=== PATIENT | female | born 1990 | race Caucasian/White ===

== ENCOUNTER 2017-03-09 08:22 | Day surgery (SDC) | payer SELFPAY ==
[~2017-03-09 08:22] MED LIST: Lactated Ringers 1,000 ML IV SCH; Lidocaine 2% 5 ML SDV ONE; Midazolam 1 MG/ML 2 ML SDV ONE; Ondansetron 4 MG/2 ML SDV ONE; Propofol 200 MG/20 ML SDV ONE; Sodium Chloride 0.9% 10 ML Syringe FLUSH PRN; Sodium Chloride 0.9% 2.5 ML Syringe FLUSH PRN; fentaNYL 100 MCG/2 ML SDV IVPUSH PRN; fentaNYL 100 MCG/2 ML SDV ONE
--- NOTE | 2017-03-09 08:39 | PCM.PREANE ---
Preanesthetic Assessment - Anesthesia/Transfusion/Family Hx Anesthesia History: Prior Anesthesia Without Reaction Family History of Anesthesia Reaction: No Transfusion History: No Prior Transfusion(s) Intubation History: Unknown - Review of Systems General: No Symptoms Pulmonary: No Symptoms Gastrointestinal: No Symptoms Neurological: No Symptoms Other: Reports: None - Physical Assessment Height: 1.73 m Weight: 73.936 kg ASA Class: 1 Mental Status: Alert & Oriented x3 Airway Class: Mallampati = 1 Dentition: Reports: Normal Dentition Thyro-Mental Finger Breadths: 3 Mouth Opening Finger Breadths: 3 ROM/Head Extension: Full Lungs: Clear to Auscultation, Normal Respiratory Effort Cardiovascular: Regular Rate, Regular Rhythm - Allergies Allergies/Adverse Reactions: Allergies Allergy/AdvReac Type Severity Reaction Status Date / Time No Known Allergies Allergy Verified 03/06/17 11:29 - Blood Blood Available: No - Anesthesia Plan Pre-Op Medication Ordered: None - Acknowledgements Anesthesia Type Planned: General Anesthesia Pt an Appropriate Candidate for the Planned Anesthesia: Yes Alternatives and Risks of Anesthesia Discussed w Pt/Guardian: Yes Pt/Guardian Understands and Agrees with Anesthesia Plan: Yes PreAnesthesia Questionnaire Genitourinary History: Reports: Renal Calculus Other Genitourinary History: stones passes on their own Musculoskeletal History: Reports: Fracture - Past Surgical History Head Surgeries/Procedures: Reports: None Female Surgical History: Reports: Breast Implant Musculoskeletal Surgical History: Reports: ORIF Other Musculoskeletal Surgeries/Procedures:: ORIF left ring finger (hardware removed) - SUBSTANCE USE Smoking Status *Q: Former Smoker (quit 3 years ago) Tobacco Use Within Last Twelve Months: Cigarettes Second Hand Smoke Exposure: No Recreational Drug Use History: No - HOME MEDS Home Medications: Home Meds . [No Known Home Meds] 03/06/17 [History] - CURRENT (IN HOUSE) MEDS Current Meds: Current Medications Fentanyl (Sublimaze) 50 mcg IVPUSH Q5M PRN PRN Reason: Pain (severe 7-10) Stop: 03/10/17 07:54 Lactated Ringer's (Ringers, Lactated) 1,000 mls @ 125 mls/hr IV ASDIRECTED ARMEN Lactated Ringer's (Ringers, Lactated) 1,000 mls @ 125 mls/hr IV ASDIRECTED ARMEN Sodium Chloride (Saline Flush) 10 ml FLUSH ASDIRECTED PRN PRN Reason: Keep Vein Open Sodium Chloride (Saline Flush) 2.5 ml FLUSH ASDIRECTED PRN PRN Reason: Keep Vein Open Discontinued Medications Fentanyl (Sublimaze) Confirm Administered Dose 200 mcg .ROUTE .STK-MED ONE Stop: 03/09/17 07:28 Lidocaine (Xylocaine-Mpf 2%) Confirm Administered Dose 5 ml .ROUTE .STK-MED ONE Stop: 03/09/17 07:27 Midazolam HCl (Versed 1 Mg/Ml) Confirm Administered Dose 2 mg .ROUTE .STK-MED ONE Stop: 03/09/17 07:28 Ondansetron HCl (Zofran) Confirm Administered Dose 4 mg .ROUTE .STK-MED ONE Stop: 03/09/17 07:27 Propofol (Diprivan 20 Ml) Confirm Administered Dose 200 mg .ROUTE .STK-MED ONE Stop: 03/09/17 07:28
[2017-03-09] MEDS ORDERED: Methylergonovine 0.2 MG/1 ML Amp ONE (09:49)
[2017-03-09] MEDS ORDERED: ePHEDrine 50 MG/ML SDV ONE (10:30)
[2017-03-09] MEDS ORDERED: Carboprost Tromethamine 250 MCG/1 ML Amp ONE (10:37)
--- NOTE | 2017-03-09 11:17 | PCM.OPNOTE ---
- General Post-Op/Procedure Note Date of Surgery/Procedure: 03/09/17 Operative Procedure(s): Suction Dilatation and curettage Findings: Bulky 12 weeks gravis uterus. No adnexal masses Pre Op Diagnosis: Missed Post-Op Diagnosis: Same Anesthesia Technique: General ET Tube Primary Surgeon: Leeann Drewum Pathology: Products of conception Fluid Replacement, Intraop: 3,000 EBL in mLs: 1,500 Complications: None Condition: Good
[2017-03-09 12:43] VITALS: BP 117/67
--- NOTE | 2017-03-10 02:15 | OR ---
SURGEON: Leeann Shore MD DATE OF PROCEDURE: 03/09/2017 PREOPERATIVE DIAGNOSIS: Missed . POSTOPERATIVE DIAGNOSIS: Missed . PROCEDURES: Suction dilatation and curettage under ultrasound guidance. ANESTHESIA: General endotracheal. Intravenous Fluid: 3000ml ESTIMATED BLOOD LOSS: 1500 mL. COMPLICATIONS: None. DISPOSITION: The patient taken to the recovery room in stable condition. FINDINGS: Bulky anteverted mobile uterus 12 weeks size. No adnexal masses palpable. BRIEF HISTORY: The patient is a 26-year-old G3, P1, who had her first obstetric visit 8 weeks ago with a confirmed viable intrauterine at that time at 6 weeks gestation. No cardiac activity was identified on doppler at her routine visit 4 weeks later, and demise was confirmed on ultrasound at a gestational age of 11 weeks and 2 days by crown- rump length which was consistent with her dates at that time. Management options were discussed with the patient and she opted to go ahead with surgical management. Risks and benefits were discussed extensively with the patient and appropriate consent obtained. Blood type is A positive. DESCRIPTION OF PROCEDURE: The patient was taken to the operating room, where induction of general anesthesia was performed without difficulty. After adequate level of anesthesia, she was placed in dorsal lithotomy position, prepped and draped in the usual sterile fashion. Appropriate time-out was performed. Examination under anesthesia revealed the above-mentioned findings. A bivalve speculum was placed into the vagina and the anterior lip of the cervix was grasped with an Allis clamp. The cervical os was serially dilated up to an 11 Hegar dilator. Suction curettage was then performed with 11-mm curved plastic cannula. This was introduced into the uterine cavity with significant amount of tissue retrieved. Ultrasound was performed and the uterus was found to be filled with mostly blood clots. Gentle curettage was performed with a large curette retrieving more products of conception. This was then followed by suction curettage under ultrasound guidance retrieving more blood and clots. She received a dose of Methergine. After these medications were given, further suction curettage was performed as the uterus was found to be filling up with blood on sonogram. Once the blood was evacuated from the uterus, the uterus contracted down and a thin endometrial lining visualized. With no further bleeding noted, the procedure was completed. All the instruments were removed from the vagina. Sponge, lap, and instrument counts were correct at the end of the procedure. She was taken to the recovery room in a stable condition. LAURENT / HIPOLITO /[id number]
== END 2017-03-09 12:50 | disposition home or self-care (01) ==
LOC: MW.SDS 08:22
PROVIDERS: ATTEND Obstetrics & Gynecology
DX: O02.1 Missed abortion (principal); Z79.899 Other long term (current) drug therapy; Z98.890 Other specified postprocedural states; Z87.891 Personal history of nicotine dependence; Z87.442 Personal history of urinary calculi
CPT/HCPCS: 36415; 59820; 85027; J2210; J2250; J2405; J3010; J7120; P9016; 00940; 36430; 86850; 86900; 86901; 86920; 86921; 86922; 88305; J2704

== ENCOUNTER 2018-07-19 08:06 | Inpatient (IN) | payer BC ==
[2018-07-19] MEDS ORDERED: Methylergonovine 0.2 MG/1 ML Amp IM PRN (08:14)
[2018-07-19] MEDS ORDERED: Sodium Chloride 0.9% 10 ML Syringe FLUSH PRN (08:14)
[2018-07-19] MEDS ORDERED: Misoprostol 25 MCG (1/4 of 100 MCG) Tab PO PRN ×2 (08:14→13:00)
[2018-07-19] MEDS ORDERED: Misoprostol 200 MCG Tab PO PRN (08:14)
[2018-07-19] MEDS ORDERED: Ondansetron 4 MG/2 ML SDV IV PRN (08:14)
[2018-07-19] MEDS ORDERED: Tranexamic Acid 1,000 MG in Sodium Chloride 0.9% 100 ML IV PRN (08:14)
[2018-07-19] MEDS ORDERED: Nalbuphine 10 MG/1 ML Vial IVPUSH PRN (08:14)
[2018-07-19] MEDS ORDERED: Misoprostol 25 MCG (1/4 of 100 MCG) Tab VAG PRN ×2 (08:14→13:00)
[2018-07-19] MEDS ORDERED: Lidocaine 1% 50 ML MDV INJECT PRN (08:14)
[2018-07-19] MEDS ORDERED: Water For Irrigation,Sterile 1,000 ML Container IRR PRN (08:14)
[2018-07-19] MEDS ORDERED: Terbutaline 1 MG/ML SDV SUBCUT PRN (08:14)
[2018-07-19] MEDS ORDERED: Sodium Chloride 0.9% 2.5 ML Syringe FLUSH PRN (08:14)
[2018-07-19] MEDS ORDERED: Carboprost Tromethamine 250 MCG/1 ML Amp IM PRN (08:14)
[2018-07-19] MEDS ORDERED: Oxytocin/0.9 % Sodium Chloride 30 UNIT/500 ML BAG IV SCH ×2 (08:15)
--- NOTE | 2018-07-19 13:55 | PCM.LDHP ---
L&D History of Present Illness - General Date of Service: 07/19/18 Admit Problem/Dx: Patient Status Order with Admit Dx/Problem 07/19/18 08:14 Patient Status [ADT] Routine Admission Diagnosis/Problem Admission Diagnosis/Problem Source of Information: Patient History Limitations: Reports: No Limitations - History of Present Illness Improves with: Reports: None Worsens with: Reports: None Associated Symptoms: Reports: N - Related Data Allergies/Adverse Reactions: Allergies Allergy/AdvReac Type Severity Reaction Status Date / Time No Known Allergies Allergy Verified 03/06/17 11:29 Home Medications: Home Meds Docusate Sodium [Colace] 100 mg PO DAILY 07/19/18 [History] Vits #93/Iron Fum/FA [ Formula Tablet] 1 each PO DAILY [History] Pyridoxine HCl [Vitamin B-6] 25 mg PO 07/19/18 [History] Past Medical History Genitourinary History: Reports: Renal Calculus Other Genitourinary History: stones passes on their own 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: , 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 Musculoskeletal History: Reports: Fracture - Infectious Disease History Infectious Disease History: Reports: Chicken Pox - Past Surgical History Head Surgeries/Procedures: Reports: None Female Surgical History: Reports: Breast Implant, D&C Musculoskeletal Surgical History: Reports: ORIF Other Musculoskeletal Surgeries/Procedures:: ORIF left ring finger (hardware removed) Social & Family History - Family History OBGYN: Reports: - Tobacco Use Smoking Status *Q: Never Smoker Second Hand Smoke Exposure: No - Recreational Drug Use Recreational Drug Use: No H&P Review of Systems - Review of Systems: Review Of Systems: See Below General: Reports: No Symptoms HEENT: Reports: No Symptoms Pulmonary: Reports: No Symptoms Cardiovascular: Reports: No Symptoms Gastrointestinal: Reports: No Symptoms Genitourinary: Reports: No Symptoms Musculoskeletal: Reports: No Symptoms Skin: Reports: No Symptoms Psychiatric: Reports: No Symptoms Neurological: Reports: No Symptoms Hematologic/Lymphatic: Reports: No Symptoms Immunologic: Reports: No Symptoms L&D Exam - Exam Exam: See Below - Vital Signs Weight: 94.801 kg - OB Specific Fundal Height In cm: 38 Contraction Intensity: Mild to Moderate Movement: Active Heart Tones: Present - Becerra Score Becerra Score Cervix Position: Midposition Becerra Score Consistency: Medium Becerra Score Effacement: 51-70% Becerra Score Dilation: 1-2 cm Becerra Score Infant's Station: -3 Becerra Score Total: 5 - Exam General: Alert, Oriented HEENT: PERRLA, Conjunctiva Clear, EACs Clear, EOMI, Hearing Intact, Mucosa Moist & [place], Nares Patent, Normal Nasal Septum, Posterior Pharynx Clear, TMs Clear Neck: Supple, Trachea Midline Lungs: Clear to Auscultation, Normal Respiratory Effort Cardiovascular: Regular Rate, Regular Rhythm GI/Abdominal Exam: Normal Bowel Sounds, Soft, Non-Tender, No Organomegaly, No Distention, No Abnormal Bruit, No Mass, Pelvis Stable Rectal Exam: Normal Exam, Normal Rectal Tone Genitourinary: Normal external exam, Normal bimanual exam, Normal speculum exam Back Exam: Normal Inspection, Full Range of Motion Extremities: Normal Inspection, Normal Range of Motion, Non-Tender, No Pedal Edema, Normal Capillary Refill Skin: Warm, Dry, Intact Neurological: Cranial Nerves Intact, Reflexes Equal Bilateral Psychiatric: Alert, Normal Affect, Normal Mood - Patient Data Lab Results Last 24 hrs: Laboratory Results - last 24 hr 07/19/18 07/19/18 Range/Units 08:35 08:35 WBC 9.09 (4.0-11.0) K/uL RBC 4.34 (4.30-5.90) M/uL Hgb 12.8 (12.0-16.0) g/dL Hct 38.3 (36.0-46.0) % MCV 88.2 (80.0-98.0) fL MCH 29.5 (27.0-32.0) pg MCHC 33.4 (31.0-37.0) g/dL RDW Std Deviation 45.3 (28.0-62.0) fl RDW Coeff of Adis 14 (11.0-15.0) % Plt Count 203 (150-400) K/uL MPV 9.90 (7.40-12.00) fL Nucleated RBC % 0.0 /100WBC Nucleated RBCs # 0 K/uL Blood Type A POSITIVE Antibody Screen NEGATIVE Result Diagrams: 07/19/18 08:35 Problem List Initiated/Reviewed/Updated: Yes Orders Last 24hrs: Active Orders 24 hr Category Date Time Status Patient Status [ADT] Routine ADT 07/19/18 08:14 Active Communication Order [RC] ASDIRECTED Care 07/19/18 08:14 Active Communication Order [RC] ASDIRECTED Care 07/19/18 08:14 Active Communication Order [RC] ASDIRECTED Care 07/19/18 08:14 Active Heart Tones [RC] CONTINUOUS Care 07/19/18 08:14 Active Non Stress Test [RC] PER UNIT ROUTINE Care 07/19/18 08:14 Active May Shower [RC] ASDIRECTED Care 07/19/18 08:14 Active Notify Provider [RC] PRN Care 07/19/18 08:14 Active Notify Provider [RC] PRN Care 07/19/18 08:14 Active Notify Provider [RC] PRN Care 07/19/18 08:14 Active Notify Provider [RC] STAT Care 07/19/18 08:14 Active Oxygen Therapy [RC] ASDIRECTED Care 07/19/18 08:14 Active Up ad [place] [RC] ASDIRECTED Care 07/19/18 08:14 Active Vaginal Exam [RC] PRN Care 07/19/18 08:14 Active Vaginal Exam [RC] PRN Care 07/19/18 08:14 Active Vital Signs [RC] PER UNIT ROUTINE Care 07/19/18 08:14 Active Regular Diet [DIET] Diet 07/19/18 Breakfast Active Carboprost Tromethamine [Hemabate DS] Med 07/19/18 08:14 Active 250 mcg IM ASDIRECTED PRN Lactated Ringers [Ringers, Lactated] 1,000 ml Med 07/19/18 08:15 Active IV ASDIRECTED Lidocaine 1% [Xylocaine 1%] Med 07/19/18 08:14 Active 50 ml INJECT ONETIME PRN Methylergonovine [Methergine] Med 07/19/18 08:14 Active 0.2 mg IM ASDIRECTED PRN Nalbuphine [Nubain] Med 07/19/18 08:14 Active 10 mg IVPUSH Q1H PRN Ondansetron [Zofran] Med 07/19/18 08:14 Active 4 mg IV Q6H PRN Oxytocin/0.9 % Sodium Chloride [Oxytocin 30 Unit/500 ML Med 07/19/18 08:15 Active -NS] 30 unit in 500 ml IV TITRATE Oxytocin/0.9 % Sodium Chloride [Oxytocin 30 Unit/500 ML Med 07/19/18 08:15 Active -NS] 30 unit in 500 ml IV TITRATE Sodium Chloride 0.9% [Saline Flush] Med 07/19/18 08:14 Active 10 ml FLUSH ASDIRECTED PRN Sodium Chloride 0.9% [Saline Flush] Med 07/19/18 08:14 Active 2.5 ml FLUSH ASDIRECTED PRN Terbutaline [Brethine] Med 07/19/18 08:14 Active 0.25 mg SUBCUT ASDIRECTED PRN Tranexamic Acid [Cyklokapron] 1,000 mg Med 07/19/18 08:14 Active Sodium Chloride 0.9% [Normal Saline] 100 ml IV ONETIME Water For Irrigation,Sterile [Sterile Water for Med 07/19/18 08:14 Active Irrigation] 1,000 ml IRR ASDIRECTED PRN miSOPROStol [Cytotec] Med 07/19/18 08:14 Active 200 mcg PO ONETIME PRN miSOPROStol [Cytotec] Med 07/19/18 08:14 Active 25 mcg PO ONETIME PRN miSOPROStol [Cytotec] Med 07/19/18 13:00 Active 25 mcg PO Q4H PRN miSOPROStol [Cytotec] Med 07/19/18 08:14 Active 25 mcg VAG ONETIME PRN miSOPROStol [Cytotec] Med 07/19/18 13:00 Active 25 mcg VAG Q4H PRN Scalp Electrode [WOMSER] Per Unit Routine Oth 07/19/18 08:14 Ordered Medication Administration Instruction [OM.PC] Q3H Oth 07/19/18 08:15 Ordered Peripheral IV Insertion Adult [OM.PC] Routine Oth 07/19/18 08:14 Ordered Resuscitation Status Routine Resus Stat 07/19/18 08:14 Ordered Medication Orders Carboprost Tromethamine (Hemabate Ds) 250 mcg IM ASDIRECTED PRN PRN Reason: Post Hemorrhage Lactated Ringer's (Ringers, Lactated) 1,000 mls @ 150 mls/hr IV ASDIRECTED ARMEN Oxytocin/Sodium Chloride (Oxytocin 30 Unit/500 Ml-Ns) 30 unit in 500 mls @ 999 mls/hr IV TITRATE ARMEN Oxytocin/Sodium Chloride (Oxytocin 30 Unit/500 Ml-Ns) 30 unit in 500 mls @ 2 mls/hr IV TITRATE ARMEN; Protocol Tranexamic Acid 1,000 mg/ (Sodium Chloride) 110 mls @ 660 mls/hr IV ONETIME PRN PRN Reason: Bleeding Lidocaine HCl (Xylocaine 1%) 50 ml INJECT ONETIME PRN PRN Reason: Laceration repair Methylergonovine Maleate (Methergine) 0.2 mg IM ASDIRECTED PRN PRN Reason: Post Hemorrhage Misoprostol (Cytotec) 200 mcg PO ONETIME PRN PRN Reason: Post Hemorrhage Misoprostol (Cytotec) 25 mcg VAG ONETIME PRN PRN Reason: Cervical Ripening Last Admin: 07/19/18 09:19 Dose: 25 mcg Misoprostol (Cytotec) 25 mcg VAG Q4H PRN PRN Reason: Cervical Ripening Last Admin: 07/19/18 13:41 Dose: 25 mcg Misoprostol (Cytotec) 25 mcg PO ONETIME PRN PRN Reason: Cervical Ripening Last Admin: 07/19/18 09:19 Dose: 25 mcg Misoprostol (Cytotec) 25 mcg PO Q4H PRN PRN Reason: Cervical Ripening Last Admin: 07/19/18 13:41 Dose: 25 mcg Nalbuphine HCl (Nubain) 10 mg IVPUSH Q1H PRN PRN Reason: Pain (severe 7-10) Ondansetron HCl (Zofran) 4 mg IV Q6H PRN PRN Reason: Nausea/Vomiting Sodium Chloride (Saline Flush) 10 ml FLUSH ASDIRECTED PRN PRN Reason: Keep Vein Open Sodium Chloride (Saline Flush) 2.5 ml FLUSH ASDIRECTED PRN PRN Reason: Keep Vein Open Sterile Water (Sterile Water For Irrigation) 1,000 ml IRR ASDIRECTED PRN PRN Reason: delivery Terbutaline Sulfate (Brethine) 0.25 mg SUBCUT ASDIRECTED PRN PRN Reason: Tacysystole Assessment/Plan Comment:: Probably 1001 Admitted for Elective Induction with Cytotec and Pitocin
[2018-07-19] MEDS: Lactated Ringers 1,000 ML IV SCH ×2 (14:48→18:04)
--- NOTE | 2018-07-19 17:00 | PCM.PREANE ---
Preanesthetic Assessment - Anesthesia/Transfusion/Family Hx Anesthesia History: Prior Anesthesia Without Reaction Transfusion History: Prior Transfusion Without Reaction Intubation History: Unknown - Review of Systems General: No Symptoms Pulmonary: No Symptoms Cardiovascular: No Symptoms Gastrointestinal: No Symptoms Neurological: No Symptoms Other: Reports: None - Physical Assessment Height: 5 ft 8 in Weight: 94.801 kg ASA Class: 2 Mental Status: Alert & Oriented x3 Airway Class: Mallampati = 2 Dentition: Reports: Normal Dentition Thyro-Mental Finger Breadths: 3 Mouth Opening Finger Breadths: 3 ROM/Head Extension: Full Lungs: Clear to Auscultation, Normal Respiratory Effort Cardiovascular: Regular Rate, Regular Rhythm - Lab Values: Laboratory Last Values WBC 9.09 K/uL (4.0-11.0) 07/19/18 08:35 RBC 4.34 M/uL (4.30-5.90) 07/19/18 08:35 Hgb 12.8 g/dL (12.0-16.0) 07/19/18 08:35 Hct 38.3 % (36.0-46.0) 07/19/18 08:35 MCV 88.2 fL (80.0-98.0) 07/19/18 08:35 MCH 29.5 pg (27.0-32.0) 07/19/18 08:35 MCHC 33.4 g/dL (31.0-37.0) 07/19/18 08:35 RDW Std Deviation 45.3 fl (28.0-62.0) 07/19/18 08:35 RDW Coeff of Adis 14 % (11.0-15.0) 07/19/18 08:35 Plt Count 203 K/uL (150-400) 07/19/18 08:35 MPV 9.90 fL (7.40-12.00) 07/19/18 08:35 Nucleated RBC % 0.0 /100WBC 07/19/18 08:35 Nucleated RBCs # 0 K/uL 07/19/18 08:35 Blood Type A POSITIVE 07/19/18 08:35 Antibody Screen NEGATIVE 07/19/18 08:35 - Allergies Allergies/Adverse Reactions: Allergies Allergy/AdvReac Type Severity Reaction Status Date / Time No Known Allergies Allergy Verified 03/06/17 11:29 - Acknowledgements Anesthesia Type Planned: Epidural Pt an Appropriate Candidate for the Planned Anesthesia: Yes Alternatives and Risks of Anesthesia Discussed w Pt/Guardian: Yes Pt/Guardian Understands and Agrees with Anesthesia Plan: Yes PreAnesthesia Questionnaire HEENT History: Reports: None Cardiovascular History: Reports: None Respiratory History: Reports: None Gastrointestinal History: Reports: GERD Genitourinary History: Reports: Renal Calculus Other Genitourinary History: stones passes on their own 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: , 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 : 3 Para: 1 LMP (Approximate): Musculoskeletal History: Reports: Fracture Neurological History: Reports: None Psychiatric History: Reports: None Endocrine/Metabolic History: Reports: None Hematologic History: Reports: None Immunologic History: Reports: None Oncologic (Cancer) History: Reports: None Dermatologic History: Reports: None - Infectious Disease History Infectious Disease History: Reports: Chicken Pox - Past Surgical History Head Surgeries/Procedures: Reports: None Female Surgical History: Reports: Breast Implant, D&C Musculoskeletal Surgical History: Reports: ORIF Other Musculoskeletal Surgeries/Procedures:: ORIF left ring finger (hardware removed) - SUBSTANCE USE Smoking Status *Q: Never Smoker Second Hand Smoke Exposure: No Recreational Drug Use History: No - HOME MEDS Home Medications: Home Meds Docusate Sodium [Colace] 100 mg PO DAILY 07/19/18 [History] Vits #93/Iron Fum/FA [ Formula Tablet] 1 each PO DAILY [History] Pyridoxine HCl [Vitamin B-6] 25 mg PO 07/19/18 [History] - CURRENT (IN HOUSE) MEDS Current Meds: Current Medications Carboprost Tromethamine (Hemabate Ds) 250 mcg IM ASDIRECTED PRN PRN Reason: Post Hemorrhage Lactated Ringer's (Ringers, Lactated) 1,000 mls @ 150 mls/hr IV ASDIRECTED ARMEN Last Admin: 07/19/18 14:48 Dose: 150 mls/hr Oxytocin/Sodium Chloride (Oxytocin 30 Unit/500 Ml-Ns) 30 unit in 500 mls @ 999 mls/hr IV TITRATE ARMEN Oxytocin/Sodium Chloride (Oxytocin 30 Unit/500 Ml-Ns) 30 unit in 500 mls @ 2 mls/hr IV TITRATE ARMEN; Protocol Tranexamic Acid 1,000 mg/ (Sodium Chloride) 110 mls @ 660 mls/hr IV ONETIME PRN PRN Reason: Bleeding Lidocaine HCl (Xylocaine 1%) 50 ml INJECT ONETIME PRN PRN Reason: Laceration repair Methylergonovine Maleate (Methergine) 0.2 mg IM ASDIRECTED PRN PRN Reason: Post Hemorrhage Misoprostol (Cytotec) 200 mcg PO ONETIME PRN PRN Reason: Post Hemorrhage Misoprostol (Cytotec) 25 mcg VAG ONETIME PRN PRN Reason: Cervical Ripening Last Admin: 07/19/18 09:19 Dose: 25 mcg Misoprostol (Cytotec) 25 mcg VAG Q4H PRN PRN Reason: Cervical Ripening Last Admin: 07/19/18 13:41 Dose: 25 mcg Misoprostol (Cytotec) 25 mcg PO ONETIME PRN PRN Reason: Cervical Ripening Last Admin: 07/19/18 09:19 Dose: 25 mcg Misoprostol (Cytotec) 25 mcg PO Q4H PRN PRN Reason: Cervical Ripening Last Admin: 07/19/18 13:41 Dose: 25 mcg Nalbuphine HCl (Nubain) 10 mg IVPUSH Q1H PRN PRN Reason: Pain (severe 7-10) Last Admin: 07/19/18 16:35 Dose: 10 mg Ondansetron HCl (Zofran) 4 mg IV Q6H PRN PRN Reason: Nausea/Vomiting Sodium Chloride (Saline Flush) 10 ml FLUSH ASDIRECTED PRN PRN Reason: Keep Vein Open Sodium Chloride (Saline Flush) 2.5 ml FLUSH ASDIRECTED PRN PRN Reason: Keep Vein Open Sterile Water (Sterile Water For Irrigation) 1,000 ml IRR ASDIRECTED PRN PRN Reason: delivery Terbutaline Sulfate (Brethine) 0.25 mg SUBCUT ASDIRECTED PRN PRN Reason: Tacysystole
[2018-07-19] MEDS ORDERED: Lidocaine HCl/EPINEPHrine 5 ML IJ ONE (17:01)
[2018-07-19] MEDS ORDERED: Witch Hazel Medicated Pads 40/Jar TOP PRN (19:14)
[2018-07-19] MEDS ORDERED: Benzocaine/Menthol 20%-0.5% Spray 78 GM Cannister TOP PRN (19:14)
[2018-07-19] MEDS ORDERED: Lanolin 100% Cream 7 GM Tube TOP PRN (19:14)
[2018-07-19] MEDS ORDERED: Bisacodyl 10 MG Supp RECTAL PRN (19:14)
[2018-07-19] MEDS ORDERED: Acetaminophen 500 MG Tab PO PRN ×2 (19:14)
[2018-07-19] MEDS ORDERED: oxyCODONE 5 MG Tab PO PRN (19:14)
[2018-07-19] MEDS ORDERED: Ibuprofen 400 MG Tab PO PRN (19:14)
[2018-07-19] MEDS ORDERED: Docusate Sodium 100 MG Cap PO PRN (19:14)
[2018-07-19] MEDS ORDERED: Lidocaine 2% 5 ML SDV ONE (21:39)
[2018-07-19] MEDS: Ibuprofen 800 MG Tab PO PRN (22:48)
--- NOTE | 2018-07-20 00:11 | OR ---
SURGEON: Moncho Abad MD DATE OF PROCEDURE: Ms. Concepcion is 27 years old. She is para 1-0-0-1. She is term. She is followed by our midwifery service, mainly by Maria C Magallon. She is 40+ weeks. The patient is admitted for elective induction. At the time of the admission, the patient was 1 cm, 70% vertex. She started on Cytotec and she progressed to 3 cm. Then, I did an artificial rupture of the membrane, which is clear fluid. The patient had epidural anesthesia for labor analgesia. She progressed rather rapidly. She went from 4 cm to 8 then to complete and she was 0 to +1 station. She started pushing. She pushed in excess of 2-1/2 hours. The patient went to vertex +2, and I assessed the patient and she was occiput posterior. I gave the option for the patient to start on Pitocin or to have vacuum extraction. The patient elected to have Pitocin first. We started the Pitocin for 30 minute. She had intense contraction. She pushed with them. She was unable to do farther increase in descent of the fetus or able to splint it from occiput posterior to occiput anterior. She consented for the vacuum extraction. Prior to doing the vacuum extraction, I examined her and confirmed the fact the patient is occiput posterior. I tried to do manual rotation with my hand to occiput anterior. I was unsuccessful because the head was wedged down with occiput posterior and I was afraid to push the head out of the pelvis and rotated because of the possibility of cord prolapse, so I decided to use the vacuum and deliver the patient occiput posterior, and after two pulling with the patient pushing, I was successful to deliver the patient. During the process of the delivering, heart rate was consistently above 140 to 145 with good variability. Once the fetus was delivered, the heart rate was above 100. However, the fetus has required some oxygen resuscitation and vigorous stimulation. The score right now is as per the nurse's note. The silver plater is called Dr. Chirinos and Mr. Martín Hdz was in attendant and he participated in resuscitating the fetus. Later on, the fetus was crying very well, moving with good oxygenation. The placenta delivered spontaneous, complete and intact. There was a small vaginal laceration and I repaired that with 3-0 Vicryl without any problem. ESTIMATED BLOOD LOSS: 250 to 300 mL. COMPLICATIONS: There was no complication in the process of labor and the delivery. For detailed resuscitation, please refer to the Anesthesia and OB nursing note. FLORENTIN / HIPOLITO /[id number]
[2018-07-20] MEDS: Ibuprofen 800 MG Tab PO PRN ×2 (04:26→09:49)
--- NOTE | 2018-07-20 05:59 | PCM48HPAN ---
Post Anesthesia Note - EVALUATION WITHIN 48HRS OF ANESTHETIC Vital Signs in Normal Range: Yes Patient Participated in Evaluation: Yes Respiratory Function Stable: Yes Airway Patent: Yes Cardiovascular Function Stable: Yes Hydration Status Stable: Yes Pain Control Satisfactory: Yes Nausea and Vomiting Control Satisfactory: Yes Mental Status Recovered: Yes
[2018-07-20 08:55] VITALS: BP 121/67
--- NOTE | 2018-07-20 09:13 | PCM.PNPP ---
- General Info Date of Service: 07/20/18 Functional Status: Reports: Pain Controlled - Review of Systems General: Reports: No Symptoms HEENT: Reports: No Symptoms Pulmonary: Reports: No Symptoms Cardiovascular: Reports: No Symptoms Gastrointestinal: Reports: No Symptoms Genitourinary: Reports: No Symptoms Musculoskeletal: Reports: No Symptoms Skin: Reports: No Symptoms Neurological: Reports: No Symptoms Psychiatric: Reports: No Symptoms - General Info Date of Service: 07/20/18 - Patient Data Vital Signs - Most Recent: Last Vital Signs Temp 36.4 C 07/20/18 08:14 Pulse 72 07/20/18 08:14 Resp 20 07/20/18 08:14 BP 121/67 07/20/18 08:14 Pulse Ox 97 07/20/18 08:14 Weight - Most Recent: 94.801 kg I&O - Last 24 Hours: Intake & Output 07/19/18 07/20/18 07/20/18 22:59 06:59 14:59 Intake Total 900 500 Balance 900 500 Lab Results - Last 24 Hours: Laboratory Results - last 24 hr 07/19/18 07/20/18 Range/Units 08:35 05:47 Hgb 11.8 L (12.0-16.0) g/dL Hct 34.2 L (36.0-46.0) % Blood Type A POSITIVE Antibody Screen NEGATIVE Med Orders - Current: Current Medications Acetaminophen (Tylenol Extra Strength) 500 mg PO Q4H PRN PRN Reason: Pain Acetaminophen (Tylenol Extra Strength) 1,000 mg PO Q4H PRN PRN Reason: Pain Benzocaine/Menthol (Dermoplast Pain Relief 20%-0.5% Semmes) 78 gm TOP ASDIRECTED PRN PRN Reason: Perineal Comfort Measure Last Admin: 07/19/18 22:48 Dose: 1 can Bisacodyl (Dulcolax) 10 mg RECTAL ONETIME PRN PRN Reason: Constipation Carboprost Tromethamine (Hemabate Ds) 250 mcg IM ASDIRECTED PRN PRN Reason: Post Hemorrhage Docusate Sodium (Colace) 100 mg PO BID PRN PRN Reason: Constipation Emollient Ointment (Lansinoh Hpa) 0 gm TOP ASDIRECTED PRN PRN Reason: Sore Nipples Lactated Ringer's (Ringers, Lactated) 1,000 mls @ 150 mls/hr IV ASDIRECTED ARMEN Last Admin: 07/19/18 18:04 Dose: 150 mls/hr Oxytocin/Sodium Chloride (Oxytocin 30 Unit/500 Ml-Ns) 30 unit in 500 mls @ 999 mls/hr IV TITRATE ARMEN Oxytocin/Sodium Chloride (Oxytocin 30 Unit/500 Ml-Ns) 30 unit in 500 mls @ 2 mls/hr IV TITRATE ARMEN; Protocol Last Titration: 07/19/18 21:41 Dose: 999 mls/hr Tranexamic Acid 1,000 mg/ (Sodium Chloride) 110 mls @ 660 mls/hr IV ONETIME PRN PRN Reason: Bleeding Ibuprofen (Motrin) 400 mg PO Q4H PRN PRN Reason: Pain Ibuprofen (Motrin) 800 mg PO Q6H PRN PRN Reason: Pain Last Admin: 07/20/18 04:26 Dose: 800 mg Lidocaine HCl (Xylocaine 1%) 50 ml INJECT ONETIME PRN PRN Reason: Laceration repair Methylergonovine Maleate (Methergine) 0.2 mg IM ASDIRECTED PRN PRN Reason: Post Hemorrhage Misoprostol (Cytotec) 200 mcg PO ONETIME PRN PRN Reason: Post Hemorrhage Misoprostol (Cytotec) 25 mcg VAG ONETIME PRN PRN Reason: Cervical Ripening Last Admin: 07/19/18 09:19 Dose: 25 mcg Misoprostol (Cytotec) 25 mcg VAG Q4H PRN PRN Reason: Cervical Ripening Last Admin: 07/19/18 13:41 Dose: 25 mcg Misoprostol (Cytotec) 25 mcg PO ONETIME PRN PRN Reason: Cervical Ripening Last Admin: 07/19/18 09:19 Dose: 25 mcg Misoprostol (Cytotec) 25 mcg PO Q4H PRN PRN Reason: Cervical Ripening Last Admin: 07/19/18 13:41 Dose: 25 mcg Nalbuphine HCl (Nubain) 10 mg IVPUSH Q1H PRN PRN Reason: Pain (severe 7-10) Last Admin: 07/19/18 16:35 Dose: 10 mg Ondansetron HCl (Zofran) 4 mg IV Q6H PRN PRN Reason: Nausea/Vomiting Oxycodone HCl (Oxycodone) 5 mg PO Q2H PRN PRN Reason: Pain Sodium Chloride (Saline Flush) 10 ml FLUSH ASDIRECTED PRN PRN Reason: Keep Vein Open Sodium Chloride (Saline Flush) 2.5 ml FLUSH ASDIRECTED PRN PRN Reason: Keep Vein Open Sterile Water (Sterile Water For Irrigation) 1,000 ml IRR ASDIRECTED PRN PRN Reason: delivery Terbutaline Sulfate (Brethine) 0.25 mg SUBCUT ASDIRECTED PRN PRN Reason: Tacysystole [place] Stephanie (Tucks) 1 pad TOP ASDIRECTED PRN PRN Reason: comfort care Last Admin: 07/19/18 22:47 Dose: 1 tub Discontinued Medications Fentanyl/Bupivacaine HCl (Anjhafrt-Pwppd-Xz 2 Mcg/Ml-0.125%) Confirm Administered Dose 100 mls @ as directed .ROUTE .STK-MED ONE Stop: 07/19/18 17:01 Lidocaine (Xylocaine-Mpf 2%) Confirm Administered Dose 10 ml .ROUTE .STK-MED ONE Stop: 07/19/18 21:40 Lidocaine/Epinephrine (Lidocaine 1.5%-Epi 1:200,000) Confirm Administered Dose 5 ml IJ .STK-MED ONE Stop: 07/19/18 17:02 - Infant Interaction Disposition, : [place] in Room with Family Infant Interaction: Holding Infant Support Person: - Recovery Exam Fundal Tone: Firm Fundal Level: 1 Fingerbreadths Below Umbilicus Fundal Placement: Midline Lochia Amount: Scant Lochia Color: Rubra/Red Perineum Description: Edematous Episiotomy/Laceration: Approximated Bladder Status: Voiding - Exam General: Alert, Oriented HEENT: Pupils Equal Neck: Supple Lungs: Clear to Auscultation, Normal Respiratory Effort Cardiovascular: Regular Rate, Regular Rhythm GI/Abdominal Exam: Normal Bowel Sounds, Soft, Non-Tender, No Organomegaly, No Distention, No Abnormal Bruit, No Mass, Pelvis Stable Extremities: Normal Inspection, Normal Range of Motion, Non-Tender, No Pedal Edema, Normal Capillary Refill Skin: Warm, Dry, Intact Wound/Incisions: Healing Well Neurological: No New Focal Deficit Psy/Mental Status: Alert, Normal Affect, Normal Mood - Problem List Review Problem List Initiated/Reviewed/Updated: Yes - My Orders Last 24 Hours: My Active Orders 07/19/18 19:14 Patient Status [ADT] Routine May Shower [RC] ASDIRECTED Up ad [place] [RC] ASDIRECTED Vital Signs [RC] PER UNIT ROUTINE Acetaminophen [Tylenol Extra Strength] 1,000 mg PO Q4H PRN Acetaminophen [Tylenol Extra Strength] 500 mg PO Q4H PRN Benzocaine/Menthol [Dermoplast Pain Relief 20%-0.5% Semmes] 78 gm TOP ASDIRECTED PRN Bisacodyl [Dulcolax] 10 mg RECTAL ONETIME PRN Docusate Sodium [Colace] 100 mg PO BID PRN Ibuprofen [Motrin] 400 mg PO Q4H PRN Ibuprofen [Motrin] 800 mg PO Q6H PRN Lanolin [Lansinoh HPA] See Dose Instructions TOP ASDIRECTED PRN Witch Stephanie [Tucks] 1 pad TOP ASDIRECTED PRN oxyCODONE 5 mg PO Q2H PRN Assess Lochia [WOMSER] Per Unit Routine Assess Uterine Involution [WOMSER] Per Unit Routine Peripheral IV Discontinue [OM.PC] Routine - Plan Plan:: Probably 1001 Admitted for Elective Induction with Cytotec and Pitocin
== END 2018-07-20 11:15 | disposition home or self-care (01) | DRG 560 ==
LOC: MW.OB 08:06 → OBSVTOIN 21:40 → MW.OB 21:40
PROVIDERS: ADMIT Obstetrics & Gynecology; ATTEND Obstetrics & Gynecology
PROC: 10S07ZZ Reposition Products of Conception, Via Natural or Artificial Opening (ICD-10-PCS; principal; 2018-07-19)
PROC: 0UQGXZZ Repair Vagina, External Approach (ICD-10-PCS; principal; 2018-07-19)
PROC: 3E033VJ Introduction of Other Hormone into Peripheral Vein, Percutaneous Approach (ICD-10-PCS; principal; 2018-07-19)
PROC: 10D07Z6 Extraction of Products of Conception, Vacuum, Via Natural or Artificial Opening (ICD-10-PCS; principal; 2018-07-19)
PROC: 10907ZC Drainage of Amniotic Fluid, Therapeutic from Products of Conception, Via Natural or Artificial Opening (ICD-10-PCS; principal; 2018-07-19)
PROC: 3E0P7VZ Introduction of Hormone into Female Reproductive, Via Natural or Artificial Opening (ICD-10-PCS; principal; 2018-07-19)
PROC: 00HU33Z Insertion of Infusion Device into Spinal Canal, Percutaneous Approach (ICD-10-PCS; 2018-07-19)
PROC: 3E0R3BZ Introduction of Anesthetic Agent into Spinal Canal, Percutaneous Approach (ICD-10-PCS; 2018-07-19)
DX: O48.0 Post-term pregnancy (principal); O64.0XX0 Obstructed labor due to incomplete rotation of fetal head, not applicable or unspecified; O71.4 Obstetric high vaginal laceration alone; Z3A.40 40 weeks gestation of pregnancy; Z37.0 Single live birth; Z87.442 Personal history of urinary calculi
CPT/HCPCS: 36415; 51702; 59025; 59409; 85014; 85018; 85027; 86850; 86900; 86901; A9270-GY; J2001; J2300; J2590; J7120

== ENCOUNTER 2019-07-05 01:47 | Observation (INO) | payer SELFPAY ==
[2019-07-05] MEDS ORDERED: Metoclopramide 10 MG/2 ML SDV IVPUSH ONE (02:00)
[2019-07-05] MEDS ORDERED: Famotidine 20 MG/2 ML SDV IVPUSH ONE (02:00)
[2019-07-05] MEDS ORDERED: Lactated Ringers 1,000 ML IV SCH (02:00)
[2019-07-05 02:44] LABS: BLOOD UREA NITROGEN,BUN 17 mg/dL (7.0-18.0); CARBON DIOXIDE,CO2 23.8 mmol/L (21.0-32.0); CHLORIDE,CL 103 mmol/L (98-107); GLUCOSE RANDOM 120 mg/dL (74-106); POTASSIUM,K 3.6 mmol/L (3.5-5.1); SODIUM,NA 139 mmol/L (136-145)
== END 2019-07-05 04:50 | disposition home or self-care (01) ==
LOC: MW.OBCHECK 01:47 → MW.OB 01:49 → MW.OBCHECK 01:56
PROVIDERS: ADMIT Obstetrics & Gynecology; ATTEND Obstetrics & Gynecology
DX: O99.89 Other specified diseases and conditions complicating pregnancy, childbirth and the puerperium (principal); R11.2 Nausea with vomiting, unspecified; Z3A.00 Weeks of gestation of pregnancy not specified
CPT/HCPCS: 36415; 59025; 80053; 85025; J2765; J7120; S0028; 96361; 96374; 96375; G0378; J3490

== ENCOUNTER 2019-08-19 18:17 | Inpatient (IN) | payer BC, OTHER ==
[2019-08-19] MEDS ORDERED: Sodium Chloride 0.9% 10 ML SDV IV PRN (19:37)
[2019-08-19] MEDS ORDERED: Sodium Chloride 0.9% 2.5 ML Syringe FLUSH PRN (19:37)
[2019-08-19] MEDS ORDERED: Misoprostol 200 MCG Tab PO PRN (19:37)
[2019-08-19] MEDS ORDERED: Nalbuphine 10 MG/1 ML Vial IVPUSH PRN (19:37)
[2019-08-19] MEDS ORDERED: Ondansetron 4 MG/2 ML SDV IVPUSH PRN (19:37)
[2019-08-19] MEDS ORDERED: Butorphanol 1 MG/ML SDV IVPUSH PRN (19:37)
[2019-08-19] MEDS ORDERED: Sodium Chloride 0.9% 10 ML Syringe FLUSH PRN (19:37)
[2019-08-19] MEDS ORDERED: Methylergonovine 0.2 MG/1 ML Amp IM PRN (19:37)
[2019-08-19] MEDS ORDERED: Water For Irrigation,Sterile 1,000 ML Container IRR PRN (19:37)
[2019-08-19] MEDS ORDERED: Lidocaine 1% 50 ML MDV INJECT PRN (19:37)
[2019-08-19] MEDS ORDERED: Tranexamic Acid 1,000 MG in Sodium Chloride 0.9% 100 ML IV PRN (19:37)
[2019-08-19] MEDS ORDERED: Carboprost Tromethamine 250 MCG/1 ML Amp IM PRN (19:37)
[2019-08-19] MEDS ORDERED: Oxytocin/0.9 % Sodium Chloride 30 UNIT/500 ML BAG IV SCH (19:45)
[2019-08-19] MEDS: Lactated Ringers 1,000 ML IV SCH ×2 (20:30→21:32)
[2019-08-19] MEDS ORDERED: fentaNYL 100 MCG/2 ML SDV ONE (20:48)
[2019-08-19] MEDS ORDERED: Ropivacaine HCl/PF 100 ML ONE (20:48)
--- NOTE | 2019-08-19 21:09 | PCM.PREANE ---
Preanesthetic Assessment - Anesthesia/Transfusion/Family Hx Anesthesia History: Prior Anesthesia Without Reaction Family History of Anesthesia Reaction: No Transfusion History: Prior Transfusion Without Reaction Intubation History: Unknown - Physical Assessment NPO Status Date: 08/19/19 NPO Status Time: 15:00 Height: 1.73 m Weight: 97.069 kg ASA Class: 1 - Lab Values: Laboratory Last Values WBC 12.35 K/uL (4.0-11.0) H 08/19/19 20:05 RBC 4.54 M/uL (4.30-5.90) 08/19/19 20:05 Hgb 13.7 g/dL (12.0-16.0) 08/19/19 20:05 Hct 40.7 % (36.0-46.0) 08/19/19 20:05 MCV 89.6 fL (80.0-98.0) 08/19/19 20:05 MCH 30.2 pg (27.0-32.0) 08/19/19 20:05 MCHC 33.7 g/dL (31.0-37.0) 08/19/19 20:05 RDW Std Deviation 45.3 fl (28.0-62.0) 08/19/19 20:05 RDW Coeff of Adis 14 % (11.0-15.0) 08/19/19 20:05 Plt Count 212 K/uL (150-400) 08/19/19 20:05 MPV 9.70 fL (7.40-12.00) 08/19/19 20:05 Nucleated RBC % 0.0 /100WBC 08/19/19 20:05 Nucleated RBCs # 0 K/uL 08/19/19 20:05 - Allergies Allergies/Adverse Reactions: Allergies Allergy/AdvReac Type Severity Reaction Status Date / Time No Known Allergies Allergy Verified 08/19/19 18:37 - Acknowledgements Anesthesia Type Planned: Epidural Pt an Appropriate Candidate for the Planned Anesthesia: Yes Alternatives and Risks of Anesthesia Discussed w Pt/Guardian: Yes Pt/Guardian Understands and Agrees with Anesthesia Plan: Yes PreAnesthesia Questionnaire HEENT History: Reports: None Cardiovascular History: Reports: None Respiratory History: Reports: None Gastrointestinal History: Reports: GERD Genitourinary History: Reports: Renal Calculus Other Genitourinary History: stones passes on their own [employer] History: Reports: , Spontaneous Musculoskeletal History: Reports: Fracture Neurological History: Reports: None Psychiatric History: Reports: None Endocrine/Metabolic History: Reports: None Hematologic History: Reports: None Immunologic History: Reports: None Oncologic (Cancer) History: Reports: None Dermatologic History: Reports: None - Infectious Disease History Infectious Disease History: Reports: Chicken Pox - Past Surgical History Head Surgeries/Procedures: Reports: None Female Surgical History: Reports: Breast Implant, D&C Musculoskeletal Surgical History: Reports: ORIF Other Musculoskeletal Surgeries/Procedures:: ORIF left ring finger (hardware removed) - HOME MEDS Home Medications: Home Meds Vits #93/Iron Fum/FA [ Formula Tablet] 1 each PO DAILY [History] Pyridoxine HCl [Vitamin B-6] 25 mg PO 07/19/18 [History] Ascorbate Calcium [Vitamin C] 1 tab PO DAILY 08/19/19 [History] Biotin 1 tab PO DAILY 08/19/19 [History] - CURRENT (IN HOUSE) MEDS Current Meds: Current Medications Butorphanol Tartrate (Stadol) 1 mg IVPUSH Q1H PRN PRN Reason: Pain Carboprost Tromethamine (Hemabate Ds) 250 mcg IM ASDIRECTED PRN PRN Reason: Post Hemorrhage Tranexamic Acid 1,000 mg/ (Sodium Chloride) 110 mls @ 660 mls/hr IV ONETIME PRN PRN Reason: Bleeding Lactated Ringer's (Ringers, Lactated) 1,000 mls @ 150 mls/hr IV ASDIRECTED ARMEN Last Admin: 08/19/19 20:30 Dose: 999 mls/hr Oxytocin/Sodium Chloride (Oxytocin 30 Unit/500 Ml-Ns) 30 unit in 500 mls @ 500 mls/hr IV TITRATE [facility] Lidocaine HCl (Xylocaine 1%) 50 ml INJECT ONETIME PRN PRN Reason: Laceration repair Methylergonovine Maleate (Methergine) 0.2 mg IM ASDIRECTED PRN PRN Reason: Post Hemorrhage Misoprostol (Cytotec) 200 mcg PO ONETIME PRN PRN Reason: Post Hemorrhage Nalbuphine HCl (Nubain) 10 mg IVPUSH Q1H PRN PRN Reason: Pain (severe 7-10) Ondansetron HCl (Zofran) 4 mg IVPUSH Q6H PRN PRN Reason: Nausea/Vomiting Sodium Chloride (Saline Flush) 10 ml FLUSH ASDIRECTED PRN PRN Reason: Keep Vein Open Sodium Chloride (Saline Flush) 2.5 ml FLUSH ASDIRECTED PRN PRN Reason: Keep Vein Open Sodium Chloride (Normal Saline) 10 ml IV ASDIRECTED PRN PRN Reason: IV Use Sterile Water (Sterile Water For Irrigation) 1,000 ml IRR ASDIRECTED PRN PRN Reason: delivery Discontinued Medications Fentanyl (Sublimaze) Confirm Administered Dose 100 mcg .ROUTE .STK-MED ONE Stop: 08/19/19 20:49 Ropivacaine (Naropin 0.2%) Confirm Administered Dose 100 mls @ as directed .ROUTE .[employer]-MED ONE Stop: 08/19/19 20:49
--- NOTE | 2019-08-19 21:12 | PCM.PRNOTE ---
- Free Text/Narrative Note: Anes Note Patient requests epidural for L&D. Sitting position, level L3-L4 midline approach. Chloraprep scrub to lumbar area. Sterile technique. Sterile fenestrated drape applied. Epidural space easily achieved single attempt wti ease using CHELA technique. CHELA at 3 cm. Cath threaded 5 cm wtih ease. Cath secure at 9 cm at skin using sterile clear adhesive dressing. 2054 Test 3 cc 1.5% lido with epi negative. 2057 LOad 10 cc 0.2% ropivicaine with 1 mcg cc fentanyl in slow divided doses. 2104 Pump started wtih 90 cc same solution. Rate is 8 cc hr, with 6 cc q 20 min prn bolus. Corey well. Time with patietjasmyne Immanuel Monroy [employer]IC[employer]
[2019-08-20] MEDS ORDERED: Acetaminophen 500 MG Tab PO PRN (00:52)
[2019-08-20] MEDS ORDERED: Ibuprofen 400 MG Tab PO PRN (00:52)
[2019-08-20] MEDS ORDERED: Benzocaine/Menthol 20%-0.5% Spray 78 GM Cannister TOP PRN (00:52)
[2019-08-20] MEDS ORDERED: Docusate Sodium 100 MG Cap PO PRN (00:52)
[2019-08-20] MEDS ORDERED: Bisacodyl 10 MG Supp RECTAL PRN (00:52)
[2019-08-20] MEDS ORDERED: Lanolin 100% Cream 7 GM Tube TOP PRN (00:52)
[2019-08-20] MEDS ORDERED: Witch Hazel Medicated Pads 40/Jar TOP PRN (00:52)
--- NOTE | 2019-08-20 01:30 | OR ---
SURGEON: Jeferson Pollard MD DATE OF PROCEDURE: 08/20/2019 INDICATION: A 29-year-old G4, P2-0-1-2 at 40 weeks and 5 days admitted with spontaneous labor. The patient had contractions at home and had progressed to 6 cm. Membrane was intact. She had an uncomplicated . Her prior baby had a cleft palate and she was evaluated by perinatology and found to have normal anatomy. GBS was negative. The patient received an epidural for pain control. She had category 1 tracing. AROM was performed with clear fluid. Contractions had spaced out, so she was given Pitocin for augmentation. The patient became fully dilated and started pushing with contractions. PREOPERATIVE DIAGNOSIS: Busch intrauterine at 40 weeks and 5 days. POSTOPERATIVE DIAGNOSIS: Busch intrauterine at 40 weeks and 5 days. PROCEDURE PERFORMED: Normal spontaneous vaginal delivery. ANESTHESIOLOGIST: Dr. Nereida Frias. ANESTHESIA: Epidural. FINDINGS: Viable female , score of 8 and 9. Weight of 8 pounds 15 ounces. Estimated blood loss of 200cc DESCRIPTION OF PROCEDURE: The patient pushed with contractions for approximately 30 minutes with good descent. head was delivered in occiput anterior position over intact perineum, restituted ROT. No nuchal cord was noted. Anterior shoulder delivered easily, followed by posterior shoulder. There was a loose body cord that was wrapped around the body and the feet, which was reduced after delivery. The baby was placed on maternal chest and evaluated by awaiting nursery staff. The baby was pink, crying, and moving all extremities after delivery. The umbilical cord was clamped and cut after 60 seconds and no longer pulsating. The umbilical cord gases were obtained. The placenta was removed with gentle traction on the umbilical cord. Pitocin bolus was given. The placenta was examined and found to be intact with 3-vessel cord. Fundal massage was performed. The uterus was firm and below the umbilicus and the bleeding was minimal. The perineum was examined and no lacerations were noted. The patient tolerated the procedure well. She was given care instructions. MOO MCMILLAN /[id number] [place]ILLE
[2019-08-20] MEDS: Acetaminophen 500 MG Tab PO PRN ×3 (08:04→17:44)
[2019-08-20] MEDS: Ibuprofen 800 MG Tab PO PRN ×2 (09:11→15:14)
--- NOTE | 2019-08-20 13:12 | PCM.PNPP ---
- General Info Date of Service: 08/20/19 Functional Status: Reports: Pain Controlled, Tolerating Diet, Ambulating, Urinating - Review of Systems General: Reports: No Symptoms HEENT: Reports: No Symptoms Pulmonary: Reports: No Symptoms Cardiovascular: Reports: No Symptoms Gastrointestinal: Reports: No Symptoms Genitourinary: Reports: No Symptoms Musculoskeletal: Reports: No Symptoms Skin: Reports: No Symptoms Neurological: Reports: No Symptoms Psychiatric: Reports: No Symptoms - Patient Data Vital Signs - Most Recent: Last Vital Signs Temp 36.5 C 08/20/19 07:39 Pulse 85 08/20/19 07:39 Resp 18 08/20/19 07:39 BP 125/80 08/20/19 07:39 Pulse Ox 96 08/20/19 07:39 Weight - Most Recent: 214 lb Lab Results - Last 24 Hours: Laboratory Results - last 24 hr 08/19/19 08/19/19 Range/Units 20:05 20:05 WBC 12.35 H (4.0-11.0) K/uL RBC 4.54 (4.30-5.90) M/uL Hgb 13.7 (12.0-16.0) g/dL Hct 40.7 (36.0-46.0) % MCV 89.6 (80.0-98.0) fL MCH 30.2 (27.0-32.0) pg MCHC 33.7 (31.0-37.0) g/dL RDW Std Deviation 45.3 (28.0-62.0) fl RDW Coeff of Adis 14 (11.0-15.0) % Plt Count 212 (150-400) K/uL MPV 9.70 (7.40-12.00) fL Nucleated RBC % 0.0 /100WBC Nucleated RBCs # 0 K/uL Blood Type A POSITIVE Antibody Screen NEGATIVE Med Orders - Current: Current Medications Acetaminophen (Tylenol Extra Strength) 500 mg PO Q4H PRN PRN Reason: Pain Acetaminophen (Tylenol Extra Strength) 1,000 mg PO Q4H PRN PRN Reason: Pain Last Admin: 08/20/19 12:19 Dose: 1,000 mg Benzocaine/Menthol (Dermoplast Pain Relief 20%-0.5% Comins) 78 gm TOP ASDIRECTED PRN PRN Reason: Perineal Comfort Measure Bisacodyl (Dulcolax) 10 mg RECTAL ONETIME PRN PRN Reason: Constipation Butorphanol Tartrate (Stadol) 1 mg IVPUSH Q1H PRN PRN Reason: Pain Carboprost Tromethamine (Hemabate Ds) 250 mcg IM ASDIRECTED PRN PRN Reason: Post Hemorrhage Docusate Sodium (Colace) 100 mg PO BID PRN PRN Reason: Constipation Emollient Ointment (Lansinoh Hpa) 0 gm TOP ASDIRECTED PRN PRN Reason: Sore Nipples Last Admin: 08/20/19 12:22 Dose: 1 applic Tranexamic Acid 1,000 mg/ (Sodium Chloride) 110 mls @ 660 mls/hr IV ONETIME PRN PRN Reason: Bleeding Lactated Ringer's (Ringers, Lactated) 1,000 mls @ 150 mls/hr IV ASDIRECTED [facility] Last Admin: 08/19/19 21:32 Dose: 150 mls/hr Oxytocin/Sodium Chloride (Oxytocin 30 Unit/500 Ml-Ns) 30 unit in 500 mls @ 500 mls/hr IV TITRATE [facility] Last Admin: 08/20/19 00:30 Dose: 500 mls/hr Ibuprofen (Motrin) 400 mg PO Q4H PRN PRN Reason: Pain Ibuprofen (Motrin) 800 mg PO Q6H PRN PRN Reason: Pain Last Admin: 08/20/19 09:11 Dose: 800 mg Lidocaine HCl (Xylocaine 1%) 50 ml INJECT ONETIME PRN PRN Reason: Laceration repair Methylergonovine Maleate (Methergine) 0.2 mg IM ASDIRECTED PRN PRN Reason: Post Hemorrhage Misoprostol (Cytotec) 200 mcg PO ONETIME PRN PRN Reason: Post Hemorrhage Nalbuphine HCl (Nubain) 10 mg IVPUSH Q1H PRN PRN Reason: Pain (severe 7-10) Ondansetron HCl (Zofran) 4 mg IVPUSH Q6H PRN PRN Reason: Nausea/Vomiting Sodium Chloride (Saline Flush) 10 ml FLUSH ASDIRECTED PRN PRN Reason: Keep Vein Open Sodium Chloride (Saline Flush) 2.5 ml FLUSH ASDIRECTED PRN PRN Reason: Keep Vein Open Sodium Chloride (Normal Saline) 10 ml IV ASDIRECTED PRN PRN Reason: IV Use Sterile Water (Sterile Water For Irrigation) 1,000 ml IRR ASDIRECTED PRN PRN Reason: delivery Witch Stephanie (Tucks) 1 pad TOP ASDIRECTED PRN PRN Reason: comfort care Discontinued Medications Fentanyl (Sublimaze) Confirm Administered Dose 100 mcg .ROUTE .STK-MED ONE Stop: 08/19/19 20:49 Ropivacaine (Naropin 0.2%) Confirm Administered Dose 100 mls @ as directed .ROUTE .STK-MED ONE Stop: 08/19/19 20:49 - Infant Interaction Infant Disposition, : [place] at Bedside Infant Feeding: Breastfed Infant; Nursed Well Support Person: - Recovery Exam Fundal Tone: Firm Fundal Level: 1 Fingerbreadths Below Umbilicus Episiotomy/Laceration: None - Exam General: Alert, Oriented, Cooperative, No Acute Distress HEENT: Pupils Equal, Pupils Reactive Neck: Supple, Trachea Midline, No JVD Lungs: Normal Respiratory Effort GI/Abdominal Exam: Soft, Non-Tender, No Organomegaly, No Distention Extremities: Normal Inspection, Normal Range of Motion, Non-Tender, No Pedal Edema Skin: Warm, Dry, Intact Neurological: No New Focal Deficit Psy/Mental Status: Alert, Normal Affect, Normal Mood - Problem List Review Problem List Initiated/Reviewed/Updated: Yes - My Orders Last 24 Hours: My Active Orders 08/19/19 18:40 Vital Signs [RC] PER UNIT ROUTINE Resuscitation Status Routine 08/19/19 19:37 Notify Provider [RC] PRN Up ad [place] [RC] ASDIRECTED Vital Signs [RC] PER UNIT ROUTINE Butorphanol [Stadol] 1 mg IVPUSH Q1H PRN Carboprost Tromethamine [Hemabate DS] 250 mcg IM ASDIRECTED PRN Lidocaine 1% [Xylocaine 1%] 50 ml INJECT ONETIME PRN Methylergonovine [Methergine] 0.2 mg IM ASDIRECTED PRN Nalbuphine [Nubain] 10 mg IVPUSH Q1H PRN Ondansetron [Zofran] 4 mg IVPUSH Q6H PRN Sodium Chloride 0.9% [Normal Saline] 10 ml IV ASDIRECTED PRN Sodium Chloride 0.9% [Saline Flush] 10 ml FLUSH ASDIRECTED PRN Sodium Chloride 0.9% [Saline Flush] 2.5 ml FLUSH ASDIRECTED PRN Tranexamic Acid [Cyklokapron] 1,000 mg Sodium Chloride 0.9% [Normal Saline] 100 ml IV ONETIME Water For Irrigation,Sterile [Sterile Water for Irrigation] 1,000 ml IRR ASDIRECTED PRN miSOPROStoL [Cytotec] 200 mcg PO ONETIME PRN Scalp Electrode [WOMSER] Per Unit Routine Peripheral IV Insertion Adult [OM.PC] Routine 08/19/19 19:45 Lactated Ringers [Ringers, Lactated] 1,000 ml IV ASDIRECTED Oxytocin/0.9 % Sodium Chloride [Oxytocin 30 Unit/500 ML-NS] 30 unit in 500 ml IV TITRATE 08/19/19 20:05 RPR (SYPHILIS SERO) W/ RFLX [REF] Routine 08/20/19 00:52 Patient Status [ADT] Routine May Shower [RC] ASDIRECTED Up ad [place] [RC] ASDIRECTED Vital Signs [RC] PER UNIT ROUTINE Acetaminophen [Tylenol Extra Strength] 1,000 mg PO Q4H PRN Acetaminophen [Tylenol Extra Strength] 500 mg PO Q4H PRN Benzocaine/Menthol [Dermoplast Pain Relief 20%-0.5% Comins] 78 gm TOP ASDIRECTED PRN Docusate Sodium [Colace] 100 mg PO BID PRN Ibuprofen [Motrin] 400 mg PO Q4H PRN Ibuprofen [Motrin] 800 mg PO Q6H PRN Lanolin [Lansinoh HPA] See Dose Instructions TOP ASDIRECTED PRN bisacodyL [Dulcolax] 10 mg RECTAL ONETIME PRN witch Stephanie [Tucks] 1 pad TOP ASDIRECTED PRN Assess Lochia [WOMSER] Per Unit Routine Assess Uterine Involution [WOMSER] Per Unit Routine Peripheral IV Discontinue [OM.PC] Routine 08/20/19 00:55 Cooling Warming Measures [RC] ASDIRECTED Ice Therapy [OM.PC] Per Unit Routine Perineal Care [OM.PC] Per Unit Routine Sitz Bath [OM.PC] Per Unit Routine 08/21/19 05:11 HEMOGLOBIN/HEMATOCRIT,HH [HEME] Timed - Assessment Assessment:: 29yo PPD1 s/p , stable and doing well. - Plan Plan:: vital stable Bleeding minimal, CBC in AM Pain controlled Tolerating PO and ambulating Plan for discharge home tomorrow
[2019-08-21] MEDS: Acetaminophen 500 MG Tab PO PRN (00:03)
[2019-08-21] MEDS: Ibuprofen 800 MG Tab PO PRN (06:14)
[2019-08-21 08:27] VITALS: BP 121/77; PULSE 77
--- NOTE | 2019-08-21 10:38 | PCM.PNPP ---
- General Info Date of Service: 08/21/19 Functional Status: Reports: Pain Controlled, Tolerating Diet, Ambulating, Urinating - Review of Systems General: Reports: No Symptoms HEENT: Reports: No Symptoms Pulmonary: Reports: No Symptoms Cardiovascular: Reports: No Symptoms Gastrointestinal: Reports: No Symptoms Genitourinary: Reports: No Symptoms Musculoskeletal: Reports: No Symptoms Skin: Reports: No Symptoms Neurological: Reports: No Symptoms Psychiatric: Reports: No Symptoms - Patient Data Vital Signs - Most Recent: Last Vital Signs Temp 36.1 C 08/21/19 08:00 Pulse 77 08/21/19 08:00 Resp 18 08/21/19 08:00 BP 121/77 08/21/19 08:00 Pulse Ox 100 08/21/19 08:00 Weight - Most Recent: 214 lb Lab Results - Last 24 Hours: Laboratory Results - last 24 hr 08/21/19 Range/Units 05:52 Hgb 13.1 (12.0-16.0) g/dL Hct 40.0 (36.0-46.0) % Med Orders - Current: Current Medications Acetaminophen (Tylenol Extra Strength) 500 mg PO Q4H PRN PRN Reason: Pain Acetaminophen (Tylenol Extra Strength) 1,000 mg PO Q4H PRN PRN Reason: Pain Last Admin: 08/21/19 00:03 Dose: 1,000 mg Benzocaine/Menthol (Dermoplast Pain Relief 20%-0.5% Galt) 78 gm TOP ASDIRECTED PRN PRN Reason: Perineal Comfort Measure Bisacodyl (Dulcolax) 10 mg RECTAL ONETIME PRN PRN Reason: Constipation Butorphanol Tartrate (Stadol) 1 mg IVPUSH Q1H PRN PRN Reason: Pain Carboprost Tromethamine (Hemabate Ds) 250 mcg IM ASDIRECTED PRN PRN Reason: Post Hemorrhage Docusate Sodium (Colace) 100 mg PO BID PRN PRN Reason: Constipation Emollient Ointment (Lansinoh Hpa) 0 gm TOP ASDIRECTED PRN PRN Reason: Sore Nipples Last Admin: 08/20/19 12:22 Dose: 1 applic Tranexamic Acid 1,000 mg/ (Sodium Chloride) 110 mls @ 660 mls/hr IV ONETIME PRN PRN Reason: Bleeding Lactated Ringer's (Ringers, Lactated) 1,000 mls @ 150 mls/hr IV ASDIRECTED [facility] Last Admin: 08/19/19 21:32 Dose: 150 mls/hr Oxytocin/Sodium Chloride (Oxytocin 30 Unit/500 Ml-Ns) 30 unit in 500 mls @ 500 mls/hr IV TITRATE [facility] Last Admin: 08/20/19 00:30 Dose: 500 mls/hr Ibuprofen (Motrin) 400 mg PO Q4H PRN PRN Reason: Pain Ibuprofen (Motrin) 800 mg PO Q6H PRN PRN Reason: Pain Last Admin: 08/21/19 06:14 Dose: 800 mg Lidocaine HCl (Xylocaine 1%) 50 ml INJECT ONETIME PRN PRN Reason: Laceration repair Methylergonovine Maleate (Methergine) 0.2 mg IM ASDIRECTED PRN PRN Reason: Post Hemorrhage Misoprostol (Cytotec) 200 mcg PO ONETIME PRN PRN Reason: Post Hemorrhage Nalbuphine HCl (Nubain) 10 mg IVPUSH Q1H PRN PRN Reason: Pain (severe 7-10) Ondansetron HCl (Zofran) 4 mg IVPUSH Q6H PRN PRN Reason: Nausea/Vomiting Sodium Chloride (Saline Flush) 10 ml FLUSH ASDIRECTED PRN PRN Reason: Keep Vein Open Sodium Chloride (Saline Flush) 2.5 ml FLUSH ASDIRECTED PRN PRN Reason: Keep Vein Open Sodium Chloride (Normal Saline) 10 ml IV ASDIRECTED PRN PRN Reason: IV Use Sterile Water (Sterile Water For Irrigation) 1,000 ml IRR ASDIRECTED PRN PRN Reason: delivery Witch Stephanie (Tucks) 1 pad TOP ASDIRECTED PRN PRN Reason: comfort care Discontinued Medications Fentanyl (Sublimaze) Confirm Administered Dose 100 mcg .ROUTE .STK-MED ONE Stop: 08/19/19 20:49 Last Admin: 08/21/19 07:36 Dose: Not Given Ropivacaine (Naropin 0.2%) Confirm Administered Dose 100 mls @ as directed .ROUTE .STK-MED ONE Stop: 08/19/19 20:49 Last Admin: 08/21/19 07:36 Dose: Not Given - Infant Interaction Infant Disposition, : [facility] at Bedside Infant Feeding: Breastfed Infant; Nursed Well Support Person: - Recovery Exam Fundal Tone: Firm Fundal Level: 1 Fingerbreadths Below Umbilicus Fundal Placement: Midline Lochia Amount: Scant, Small Lochia Color: Rubra/Red Perineum Description: Intact, Minimal Bruising/Swelling Episiotomy/Laceration: None Bladder Status: Voiding Urinary Elimination: Voided - Exam General: Alert, Oriented, Cooperative, No Acute Distress HEENT: Pupils Equal, Pupils Reactive Neck: Supple, Trachea Midline Lungs: Normal Respiratory Effort Extremities: Normal Inspection, Normal Range of Motion, Non-Tender, No Pedal Edema Skin: Warm, Dry, Intact Wound/Incisions: Healing Well Neurological: No New Focal Deficit Psy/Mental Status: Alert, Normal Affect, Normal Mood - Problem List Review Problem List Initiated/Reviewed/Updated: Yes - My Orders Last 24 Hours: My Active Orders 08/21/19 10:32 Ready for Discharge [RC] PER UNIT ROUTINE - Assessment Assessment:: 29yo PPD2 s/p , stable and doing well. - Plan Plan:: vital stable Bleeding minimal, Hgb 13.1 Pain controlled Tolerating PO and ambulating Stable for discharge today
== END 2019-08-21 11:40 | disposition home or self-care (01) | DRG 807 ==
LOC: MW.OBCHECK 18:17 → MW.OB 18:18 → MW.OBCHECK 19:37 → OBSVTOIN 08-20 00:29 → MW.OB 08-20 05:13
PROVIDERS: ADMIT Obstetrics & Gynecology; ATTEND Obstetrics & Gynecology
PROC: 10E0XZZ Delivery of Products of Conception, External Approach (ICD-10-PCS; principal; 2019-08-20)
PROC: 10907ZC Drainage of Amniotic Fluid, Therapeutic from Products of Conception, Via Natural or Artificial Opening (ICD-10-PCS; 2019-08-20)
PROC: 3E0R3BZ Introduction of Anesthetic Agent into Spinal Canal, Percutaneous Approach (ICD-10-PCS; 2019-08-20)
PROC: 00HU33Z Insertion of Infusion Device into Spinal Canal, Percutaneous Approach (ICD-10-PCS; 2019-08-20)
DX: O48.0 Post-term pregnancy (principal); Z37.0 Single live birth; Z3A.40 40 weeks gestation of pregnancy
CPT/HCPCS: 36415; 51702; 59025; 59409; 85014; 85018; 85027; 86592; 86850; 86900; 86901; A9270-GY; J2590; J2795; J3010; J7120